=== PATIENT | male | born 1995 | race Caucasian/White ===

== ENCOUNTER 2017-11-28 11:01 | Emergency (ER) | payer SELFPAY ==
[2017-11-28 11:05] VITALS: BP 140/73
--- NOTE | 2017-11-28 11:05 | ER Document Report ---
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 has a paronychia radial side of his left thumbnail Associated Symptoms: None Exacerbated by: Denies Relieved by: Denies - ROS ROS below otherwise negative: Yes Systems Reviewed and Negative: Yes All other systems reviewed and negative Past Medical History - General Information source: Patient - Social History Smoking Status: Unknown if Ever Smoked Frequency of alcohol use: None Drug Abuse: None Lives with: Family Family History: Reviewed & Not Pertinent - Medical History Medical History: Negative Surgical Hx: Negative Vertical Provider Document - CONSTITUTIONAL Agree With Documented VS: Yes Exam Limitations: No Limitations General Appearance: No Apparent Distress - MUSCULOSKELETAL/EXTREMETIES Musculoskeletal/Extremeties: MAEW, FROM, Tender - Mild paronychia radial side of the left nailbed normal nail - NEURO Level of Consciousness: Awake - DERM Integumentary: Abscess - See above, no felon. Procedures - Incision and Drainage Left Thumb Time completed: 11:18 Type: Simple Blade size: 11 I&D procedure: Betadine prep applied Incision Method: Incision made by scalpel Discharge - Discharge Clinical Impression: I&D of left thumb paronychia Condition: Good Disposition: HOME, SELF-CARE Instructions: Paronychia ([facility]) Additional Instructions: Tylenol Motrin Soak in warm soapy water 3 times today Dry dressing Return to the emergency room any concerns Forms: Return to Work
== END 2017-11-28 11:28 | disposition home or self-care (01) ==
LOC: ER 11:01
DX: L03.012 Cellulitis of left finger (principal)
CPT/HCPCS: 99283